=== PATIENT | female | born 1940 | race Caucasian/White ===

== ENCOUNTER 2018-11-13 13:50 | Observation (INO) | payer MEDICARE ==
[~2018-11-13] VITALS: Ht 154.9 cm; Wt 46.7 kg
--- NOTE | 2018-11-13 15:39 | Diagnostic Imaging Report ---
EXAMINATION: CHEST SINGLE (PORTABLE) INDICATION: Pain status post fall. AMS. COMPARISON: None FINDINGS: TUBES and LINES: None. LUNGS: Bibasilar subsegmental atelectasis. There is no evidence of pneumonia or pulmonary edema. PLEURA: No pleural effusion or pneumothorax. HEART AND MEDIASTINUM: The cardiomediastinal silhouette is unremarkable. BONES AND SOFT TISSUES: No acute osseous lesion. Overlap of osseous structures in the superior right hemithorax with buckling of multiple upper ribs. UPPER ABDOMEN: No free air under the diaphragm. IMPRESSION: Possible nondisplaced fractures of superior posterior right-sided ribs. Signed by: Dr. Aleah Mejia M.D. on 11/13/2018 3:36 PM
--- NOTE | 2018-11-13 15:47 | Diagnostic Imaging Report ---
Exam: Head CT without contrast History: March mental status, status post fall x1 week ago Comparison studies: None Technique: Axial images were obtained from the skull base to the vertex. Coronal and sagittal images reconstructed from the axial data. Dose modulation, iterative reconstruction, and/or weight based adjustment of the mA/kV was utilized to reduce the radiation dose to as low as reasonably achievable. Radiation dose: Total DLP: 921 mGy*cm. Estimated effective dose: DLP x 0.015 Intravenous contrast: None Findings: Scalp: No abnormalities. Bones: No fractures, blastic or lytic lesions. Brain sulci: Mildly prominent. Ventricles: Moderately dilated lateral and third ventricles disproportionate to sulcal prominence. Findings may be related to a degree of central greater peripheral cortical volume loss. Consider normal pressure hydrocephalus (NPH) only in the appropriate clinical setting. The fourth ventricle is normal in size. No acute hydrocephalus. Extra-axial spaces: No masses, no fluid collection. Parenchyma: No mass, acute hemorrhage or acute cortical insults. Ill-defined confluent hypodensities in the supratentorial white matter are nonspecific but most compatible with chronic microvascular ischemic changes. Incidental subtle linear calcifications in the right intraparietal lobe may reflect vascular calcifications Sellar/suprasellar region: No abnormalities. Craniocervical junction: Patent foramen magnum. No Chiari one malformation. IMPRESSION: No acute abnormalities. Chronic findings: 1. Moderate generalized volume loss. 2. Scattered confluent supratentorial microvascular ischemic changes. 3. Nonspecific ventriculomegaly as described. Signed by: Dr. Mirza Padilla M.D. on 11/13/2018 3:44 PM
[2018-11-13 16:43] LABS: BILIRUBIN,URINE NEGATIVE (NEGATIVE); CLARITY,URINE CLEAR (CLEAR); COLOR,URINE YELLOW (YELLOW); KETONES,URINE NEGATIVE (NEGATIVE); LEUKOCYTE ESTERASE ,URINE NEGATIVE (NEGATIVE); NITRITE,URINE NEGATIVE (NEGATIVE); PROTEIN,URINE DIPSTICK NEGATIVE (NEGATIVE); URINE UROBILINOGEN 0.2 mg/dL (0.2 - 1)
[2018-11-13 17:00] LABS: BASOPHILS # (AUTO) 0.1 (0.0-0.1); BASOPHILS % 0.9 % (0.0-1.0); EOSINOPHILS # (AUTO) 0.2 (0.0-0.4); EOSINOPHILS % 3.4 % (0.0-6.0); HEMATOCRIT 39.5 % (34.2-44.1); HEMOGLOBIN 12.9 g/dL (12.0-16.0); LYMPHOCYTES % 29.9 % (18.0-39.1); MEAN CORPUSCULAR HEMOGLOBIN 29.2 pg (28-32); MEAN CORPUSCULAR HGB CONC 32.7 g/dL (31-35); MEAN CORPUSCULAR VOLUME 89.4 fL (81-99); MONOCYTES # (AUTO) 0.4 (0.2-0.8); MONOCYTES % 6.5 % (4.4-11.3); NEUTROPHILS % 58.9 % (38.7-80.0); PLATELET COUNT 252 x10e3/uL (140-360); RED BLOOD COUNT 4.42 x10e6/uL (3.6-5.1); RED CELL DISTRIBUTION WIDTH 14.2 % (11.7-14.4)
[2018-11-13 17:06] LABS: BACTERIA,URINE FEW /HPF; EPITHELIAL CELLS,URINE FEW /LPF; RBC,URINE 0-5 /HPF (0-5); WBC,URINE (MAN) 0-5 /HPF (0-5)
[2018-11-13 17:21] LABS: ALANINE AMINOTRANSFERASE 15 IU/L (0-55); ALBUMIN 4.4 g/dL (3.5-5.0); ALBUMIN/GLOBULIN RATIO 1.1 (0.8-2.0); ALKALINE PHOSPHATASE 102 IU/L (40-150); BLOOD UREA NITROGEN 10 mg/dL (7-26); BUN/CREATININE RATIO 14 (6-25); CALCIUM 10.1 mg/dL (8.4-10.2); CARBON DIOXIDE 24 mmol/L (22-29); CHLORIDE 103 mmol/L (98-107); CREATINE KINASE 48 IU/L (29-168); CREATININE, SERUM 0.72 mg/dL (0.57-1.11); EST GLOMERULAR FILTRATION RATE > 60 ML/MIN (60-); GLUCOSE 90 mg/dL (74-118); SODIUM 138 mmol/L (136-145)
[2018-11-13 17:42] LABS: PLATELET ESTIMATE ADEQUATE; PLATELET MORPHOLOGY COMMENT FEW EDTA CLUMPING; RBC MORPHOLOGY COMMENT NORMAL
--- OUTSIDE RECORDS SUMMARY | 2018-11-13 18:05 | XMS REPORT ---
Author Author [facility] Address Unknown Phone Unavailable Care Team Providers Care Financial Administrator Name Role Phone Andre CHA Unavailable Unavailable Problems This patient has no known problems. Allergies, Adverse Reactions, Alerts This patient has no known allergies or adverse reactions. Medications This patient has no known medications. Results Test Description Test Time Test Comments Text Results Atomic Results Result Comments CT BRAIN WO 2018-11-13 15:37:00 [place] [address] Patient Name: SUSAN BENSON MR #: [id number] : 1940 Age/Sex: 78/F Req #: [id number] Adm Physician: Ordered by: PITO CHA MD Report #: [id number] Location: ER Room/Bed: Procedure: CT/CT BRAIN WO Exam Date: 11/13/18 Exam Time: 1524 REPORT STATUS: Signed Exam: Head CT without contrast History: March mental status, status post fall x1 week ago Comparison studies: None Technique: Axial images were obtained from the skull base to the vertex. Coronal and sagittal images reconstructed from the axial data. Dose modulation, iterative reconstruction, and/or weight based adjustment of the mA/kV was utilized to reduce the radiation dose to as low as reasonably achievable. Radiation dose: Total DLP: 921 mGy*cm. Estimated effective dose: DLP x 0.015 Intravenous contrast: None Findings: Scalp: No abnormalities. Bones: No fractures, blastic or lytic lesions. Brain sulci: Mildly prominent. Ventricles: Moderately dilated lateral and third ventricles disproportionate to sulcal prominence. Findings may be related to a degree of central greater peripheral cortical volume loss. Consider normal pressure hydrocephalus (NPH) only in the appropriate clinical setting. The fourth ventricle is normal in size. No acute hydrocephalus. Extra-axial spaces: No masses, no fluid collection. Parenchyma: No mass, acute hemorrhage or acute cortical insults. Ill-defined confluent hypodensities in the supratentorial white matter are nonspecific but most compatible with chronic microvascular ischemic changes. Incidental subtle linear calcifications in the right intraparietal lobe may reflect vascular calcifications Sellar/suprasellar region: No ab normalities. Craniocervical junction: Patent foramen magnum. No Chiari one malformation. IMPRESSION: No acute abnormalities. Chronic findings: 1. Moderate generalized volume loss. 2. Scattered confluent supratentorial microvascular ischemic changes. 3. Nonspecific ventriculomegaly as described. Signed by: Dr. Chicho Padilla M.D. on 11/13/2018 3:44 PM Dictated By: CHICHO PADILLA MD [id number] Transcribed By: LATA on 11/13/18 1543 COPY TO: PITO CHA MD CHEST SINGLE (PORTABLE) 2018-11-13 15:33:00 [place] [address] Patient Name: SUSAN BENSON MR #: [id number] : 1940 Age/Sex: 78/F Req #: [id number] Adm Physician: Ordered by: PITO CHA MD Report #: [id number] Location: Room/Bed: Procedure: [id number] DX/CHEST SINGLE (PORTABLE) Exam Date: 11/13/18 Exam Time: 1524 REPORT STATUS: Signed EXAMINATION: CHEST SINGLE (PORTABLE) INDICA TION: Pain status post fall. AMS. COMPARISON: None FINDINGS: TUBES and LINES: None. LUNGS: Bibasilar subsegmental atelectasis. There is no evidence of pneumonia or pulmonary edema. PLEURA: No pleural effusion or pneumothorax. HEART AND MEDIASTINUM: The cardiomediastinal silhouette is unremarkable. BONES AND SOFT TISSUES: No acute osseous lesion. Overlap of osseous structures in the superior right hemithorax with buckling of multiple upper ribs. UPPER ABDOMEN: No free air under the diaphragm. IMPRESSION: Possible nondisplaced fractures of superior posterior right-sided ribs. Signed by: Dr. Aleah Frederick M.D. on 11/13/2018 3:36 PM Dictated By: TERESE FREDERICK MD, MD 1536 Transcribed By: LATA on 11/13/18 1536 COPY TO: PITO CHA MD
[2018-11-13] MEDS ORDERED: CLONAZEPAM0.5 MG PO (18:26)
[2018-11-13] MEDS ORDERED: SERTRALINE HCL50 MG PO (18:26)
[2018-11-13] MEDS ORDERED: CLONIDINE HCL0.2 MG PO (18:26)
[2018-11-13] MEDS ORDERED: LISINOPRIL10 MG PO (18:26)
[2018-11-13] MEDS ORDERED: HYDRALAZINE HCL 20 MG/ML VIAL IV PRN (19:00)
[2018-11-13] MEDS ORDERED: RISPERIDONE 0.5 MG TAB PO PRN (19:00)
[2018-11-13] MEDS: ASPIRIN 325 MG TAB PO SCH (19:48)
--- NOTE | 2018-11-13 19:50 | NUR ---
KNOCKOUT WORKER NOTIFIED OF 1-1 SITTER ORDER
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
[2018-11-13 20:20] VITALS: BP 139/65
[2018-11-13 20:56] VITALS: BP 130/82
[2018-11-13 20:59] VITALS: BP 130/82
[2018-11-14] VITALS: BP 121/58
[2018-11-14 00:55] LABS: CREATINE KINASE MB 0.9 ng/mL (0-5.0)
--- NOTE | 2018-11-14 04:10 | NUR ---
Patient sleeping after period of restlessness. 0400 vitals will be postponed until patient is awake.
[2018-11-14 05:35] LABS: BASOPHILS # (AUTO) 0.1 (0.0-0.1); BASOPHILS % 0.9 % (0.0-1.0); EOSINOPHILS # (AUTO) 0.4 (0.0-0.4); HEMATOCRIT 33.4 % (34.2-44.1); LYMPHOCYTES # (AUTO) 2.6 (1.0-3.2); LYMPHOCYTES % 40.9 % (18.0-39.1); MEAN CORPUSCULAR HEMOGLOBIN 28.6 pg (28-32); MEAN CORPUSCULAR HGB CONC 31.7 g/dL (31-35); MONOCYTES # (AUTO) 0.6 (0.2-0.8); MONOCYTES % 9.1 % (4.4-11.3); NEUTROPHILS # (AUTO) 2.7 (2.1-6.9); NEUTROPHILS % 42.6 % (38.7-80.0); PLATELET COUNT 283 x10e3/uL (140-360); RED BLOOD COUNT 3.71 x10e6/uL (3.6-5.1); RED CELL DISTRIBUTION WIDTH 14.1 % (11.7-14.4)
[2018-11-14 05:55] LABS: HEMOGLOBIN 10.6 g/dL (12.0-16.0)
[2018-11-14 05:57] LABS: ALANINE AMINOTRANSFERASE 10 IU/L (0-55); ALBUMIN 3.2 g/dL (3.5-5.0); ALBUMIN/GLOBULIN RATIO 1.1 (0.8-2.0); ALKALINE PHOSPHATASE 78 IU/L (40-150); ANION GAP 11.8 mmol/L (8-16); BLOOD UREA NITROGEN 11 mg/dL (7-26); BUN/CREATININE RATIO 17 (6-25); CARBON DIOXIDE 24 mmol/L (22-29); CHLORIDE 106 mmol/L (98-107); CREATININE, SERUM 0.64 mg/dL (0.57-1.11); EST GLOMERULAR FILTRATION RATE > 60 ML/MIN (60-); GLUCOSE 78 mg/dL (74-118); POTASSIUM 3.8 mmol/L (3.5-5.1); SODIUM 138 mmol/L (136-145)
--- NOTE | 2018-11-14 06:55 | NUR ---
rounded with overnight stocker, patient resting comfortably and aware of change. call arreola within reach and bed in lowest position.
[2018-11-14 08:40] VITALS: BP 119/58
[2018-11-14] MEDS: ASPIRIN 325 MG TAB PO SCH (08:40)
[2018-11-14 08:48] VITALS: BP 119/58
[2018-11-14] MEDS ORDERED: SERTRALINE HCL 50 MG TAB PO SCH (09:00)
[2018-11-14] MEDS ORDERED: LISINOPRIL 10 MG TAB PO SCH (09:00)
[2018-11-14 09:13] LABS: CREATINE KINASE MB 1.4 ng/mL (0-5.0)
[2018-11-14 11:37] VITALS: BP 153/74
--- NOTE | 2018-11-14 13:03 | Progress Note ---
DATE: SUBJECTIVE: The patient had an MRI, but the results are not available yet. She had a carotid duplex that showed no significant stenosis. EKG showed normal sinus rhythm. OBJECTIVE: VITAL SIGNS: The patient is afebrile. The vital signs are stable. HEENT: Shows no facial swelling or erythema. The oropharynx is normal. LYMPHATIC: Shows no submandibular, cervical, or supraclavicular adenopathy. CARDIAC: Reveals regular rate and rhythm with a normal S1 and S2. LUNGS: Auscultation of lungs reveals clear breath sounds bilaterally. There is no wheezing. ABDOMEN: Soft, nontender. There is no rebound or guarding. EXTREMITIES: Show no leg edema or calf tenderness. There is no cyanosis or clubbing. SKIN: Shows no rashes. IMPRESSION: 1. Metabolic encephalopathy. 2. Scattered confluent supratentorial microvascular changes suggestive of prior ischemic disease. 3. Hypertension. PLAN: 1. Await MRI results. 2. Antiplatelet therapy. 3. Control blood pressure. 4. Await Cardiology and Neurology consultations. MD [facility]/STIVEN /[id number]
--- NOTE | 2018-11-14 14:31 | Diagnostic Imaging Report ---
History: Altered mental status Comparison studies: Head CT 11/13/2018. Technique: 3-D T1 with axial, coronal and sagittal reformats, axial DWI, axial T2*GRE, axial T2 FLAIR and axial T2. Intravenous contrast: None Findings: Several pulse sequences are limited by artifacts related to patient motion. Scalp: Normal in signal. No masses. Bone marrow: Normal in signal intensity. Brain sulci: Mildly prominent. Ventricles: Moderately dilated lateral and third ventricles disproportionate to sulcal prominence. Extra axial spaces: No mass, no fluid collection. Parenchyma: No mass, acute hemorrhage or acute ischemia. Scattered and mildly confluent T2 FLAIR hyperintense foci in the supratentorial white matter and marcelino are nonspecific but most compatible with chronic microvascular ischemic changes. Confluent T2 FLAIR hyperintense signal changes in the periventricular white matter are nonspecific and may reflect chronic age-related periventricular changes or interstitial changes related to transependymal CSF flow. Ill-defined curvilinear foci of decreased signal in the right parietal lobe correlates to nonspecific dystrophic calcification seen on the prior CT and is without surrounding edema or mass effect. Suprasellar region: No abnormalities. Craniocervical junction: Patent foramen magnum. No Chiari malformation. Vessels: Normal flow-voids in the arteries and sinuses. IMPRESSION: Limited exam due to motion artifacts. In spite of limitations: 1. Moderate supratentorial ventriculomegaly disproportionate to sulcal prominence. Consider normal pressure hydrocephalus (NPH) in the appropriate clinical setting setting. 2. Moderate generalized cerebral volume loss. 3. Moderate chronic microvascular ischemic changes. 4. No mass or acute ischemia. Signed by: Dr. Mirza Padilla M.D. on 11/14/2018 2:28 PM
[2018-11-14 15:30] VITALS: BP 194/93
[2018-11-14 17:58] LABS: CHOL/HDL RATIO 3.6 (3.0-3.6)
[2018-11-14 18:35] LABS: FREE T4 (FREE THYROXINE) 1.08 ng/dL (0.9-1.8); THYROID STIMULATING HORMONE 2.141 uIU/mL (0.350-4.940)
--- NOTE | 2018-11-14 18:56 | NUR ---
handoff report given to night time nanny nurse, patient aware of change and in no distress with family at bedside. call arreola within reach and bed in lowest position.
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
[2018-11-15] MEDS ORDERED: AMLODIPINE BESYLATE 5 MG TAB PO SCH (09:00)
== END 2018-11-14 19:06 | disposition home or self-care (01) ==
LOC: ER 13:50 → ERHOLD 17:43 → IMCU 20:20
PROVIDERS: ADMIT Internal Medicine Critical Care Medicine; ATTEND Internal Medicine Critical Care Medicine
DX: N39.0 Urinary tract infection, site not specified (principal); I10 Essential (primary) hypertension; F17.200 Nicotine dependence, unspecified, uncomplicated; G93.41 Metabolic encephalopathy; I67.82 Cerebral ischemia; Z91.81 History of falling; R41.3 Other amnesia
CPT/HCPCS: 36415 ×2; 70450; 70551; 71045; 80053 ×2; 80061; 81001; 82550 ×2; 82553 ×2; 84436; 84439; 84443; 84484 ×2; 85025 ×2; 93005; 93306; 93880; 99284; G0378 ×2; J0360

== ENCOUNTER 2019-04-16 21:52 | Emergency (ER) | payer MEDICARE ==
[~2019-04-16] VITALS: Ht 154.9 cm; Wt 46.7 kg
[~2019-04-16 21:52] MED LIST: CLONAZEPAM0.5 MG PO; CLONIDINE HCL0.2 MG PO; LISINOPRIL10 MG PO; SERTRALINE HCL50 MG PO
[2019-04-16] MEDS ORDERED: ASPIRIN 81 MG CHEW TAB PO ONE (22:15)
[2019-04-16 22:44] LABS: BASOPHILS # (AUTO) 0.1 (0.0-0.1); BASOPHILS % 0.9 % (0.0-1.0); EOSINOPHILS # (AUTO) 0.2 (0.0-0.4); EOSINOPHILS % 2.4 % (0.0-6.0); HEMATOCRIT 39.4 % (34.2-44.1); HEMOGLOBIN 12.7 g/dL (12.0-16.0); LYMPHOCYTES # (AUTO) 3.2 (1.0-3.2); LYMPHOCYTES % 34.9 % (18.0-39.1); MEAN CORPUSCULAR HEMOGLOBIN 29.3 pg (28-32); MEAN CORPUSCULAR HGB CONC 32.2 g/dL (31-35); MONOCYTES # (AUTO) 0.6 (0.2-0.8); MONOCYTES % 6.7 % (4.4-11.3); NEUTROPHILS # (AUTO) 5.1 (2.1-6.9); NEUTROPHILS % 54.8 % (38.7-80.0); PLATELET COUNT 320 x10e3/uL (140-360); RED BLOOD COUNT 4.33 x10e6/uL (3.6-5.1); RED CELL DISTRIBUTION WIDTH 14.5 % (11.7-14.4)
[2019-04-16 23:05] LABS: BILIRUBIN,URINE NEGATIVE (NEGATIVE); CLARITY,URINE CLEAR (CLEAR); COLOR,URINE YELLOW (YELLOW); KETONES,URINE NEGATIVE (NEGATIVE); LEUKOCYTE ESTERASE ,URINE NEGATIVE (NEGATIVE); NITRITE,URINE NEGATIVE (NEGATIVE); PROTEIN,URINE DIPSTICK NEGATIVE (NEGATIVE); URINE UROBILINOGEN 0.2 mg/dL (0.2 - 1)
[2019-04-16 23:14] LABS: BACTERIA,URINE FEW /HPF; RBC,URINE 0-5 /HPF (0-5)
[2019-04-16 23:15] LABS: ALANINE AMINOTRANSFERASE 9 IU/L (0-55); ALBUMIN/GLOBULIN RATIO 1.1 (0.8-2.0); ALKALINE PHOSPHATASE 81 IU/L (40-150); ANION GAP 15.2 mmol/L (8-16); BLOOD UREA NITROGEN 11 mg/dL (7-26); BUN/CREATININE RATIO 14 (6-25); CALCIUM 10.1 mg/dL (8.4-10.2); CARBON DIOXIDE 26 mmol/L (22-29); CHLORIDE 101 mmol/L (98-107); CREATINE KINASE 62 IU/L (29-168); EST GLOMERULAR FILTRATION RATE > 60 ML/MIN (60-); GLUCOSE 83 mg/dL (74-118); POTASSIUM 4.2 mmol/L (3.5-5.1); SODIUM 138 mmol/L (136-145)
[2019-04-16 23:15] LABS: EPITHELIAL CELLS,URINE FEW /LPF
--- NOTE | 2019-04-16 23:42 | Diagnostic Imaging Report ---
EXAMINATION: CHEST SINGLE (PORTABLE) INDICATION: Chest pain COMPARISON: Chest radiograph 11/13/2018 FINDINGS: AP view TUBES and LINES: None. LUNGS: Hyperinflated lungs with flattened hemidiaphragms. Biapical scarring. No consolidations. Slight increase in pulmonary stricture lung markings. PLEURA: No pleural effusion or pneumothorax. HEART AND MEDIASTINUM: The cardiomediastinal silhouette is mildly enlarged aortic arch calcifications.. BONES AND SOFT TISSUES: No acute osseous lesion. Soft tissues are unremarkable. Degenerative changes in the spine and shoulders. UPPER ABDOMEN: No free air under the diaphragm. IMPRESSION: Mild cardiomegaly and pulmonary vascular congestion. Findings suspicious for pulmonary emphysema. Signed by: David Thapa DO on 04/16/2019 11:38 PM
[2019-04-17 01:02] LABS: CREATINE KINASE 45 IU/L (29-168)
--- NOTE | 2019-04-17 01:35 | Diagnostic Imaging Report ---
EXAMINATION: Head CT without contrast. HISTORY:Altered mental status. COMPARISON:CT brain from 11/13/2018 and MRI brain from 11/14/2018. TECHNIQUE: Multidetector axial images were obtained from the foramen magnum to the vertex without contrast. The images were reconstructed using brain and bone algorithms. Thin section brain images were reformatted into coronal and sagittal planes. Dose modulation, iterative reconstruction, and/or weight based adjustment of the mA/kV was utilized to reduce the radiation dose to as low as reasonably achievable. Intravenous contrast: None IMAGE QUALITY: Acceptable. FINDINGS: Skull/scalp: No lytic or blastic. lesions. No surgical changes. Parenchyma: Nonspecific bilateral frontoparietal patchy white matter hypodensity are likely related to small vessel ischemic changes. Focal hypodensity in left caudate head and left lentiform nucleus represents interval development of chronic lacunar infarct. Unchanged nonspecific cortical based dystrophic calcification in right parietal lobe. No acute hemorrhage, mass or acute major vascular territorial infarct. Arteries: No density suggestive of thrombosis. Dural sinuses: No abnormal density suggestive of thrombosis. Ventricles: Unchanged marked ventriculomegaly somewhat disproportionate to the amount of cerebral volume loss may represent normal pressure hydrocephalus or selective central cerebral volume loss in appropriate clinical setting. Extra-axial spaces: No abnormal density. Brain volume: Normal for age. Craniocervical junction: No mass, Chiari malformation, or basilar invagination. Sella: No mass. Paranasal/mastoid sinuses: Imaged portions unremarkable. IMPRESSION: No acute intracranial abnormality, particularly no acute hemorrhage, mass or acute major vascular territorial infarct. Interval development of age indeterminate likely chronic lacunar infarct in left striato-capsular region. Chronic findings: 1. Marked supratentorial ventriculomegaly disproportionate to the amount of cerebral volume loss may represent normal pressure hydrocephalus in appropriate clinical setting. 2. Moderate generalized cerebral volume loss. 3. Moderate supratentorial white matter microvascular ischemic changes. Signed by: Dr. Tasneem Mckeon M.D. on 04/17/2019 1:32 AM
[2019-04-17 01:51] VITALS: BP 130/77
== END 2019-04-17 01:53 | disposition home or self-care (01) ==
LOC: ER 21:52
DX: R07.89 Other chest pain (principal); I10 Essential (primary) hypertension; F41.9 Anxiety disorder, unspecified; F32.9 Major depressive disorder, single episode, unspecified; F17.200 Nicotine dependence, unspecified, uncomplicated; F03.90 Unspecified dementia, unspecified severity, without behavioral disturbance, psychotic disturbance, mood disturbance, and anxiety; G91.9 Hydrocephalus, unspecified
CPT/HCPCS: 36415; 70450; 71045; 80053; 81001; 82550; 82553; 84484; 85025; 93005; 99284